=== PATIENT | male | born 1975 | race Caucasian/White ===

== ENCOUNTER → 2016-11-25 | Outpatient (CLI) | payer BC ==
[~2016-11-25] MED LIST: PERCOCET 325 MG1 TA3 PO; ROBAXIN 75750 MG/TAB PO; ULTRAM 50MG TAB50 MG PO
== END ==
LOC: COL.RAD 07:01
DX: M47.897 Other spondylosis, lumbosacral region (principal); M48.06 Spinal stenosis, lumbar region; M25.78 Osteophyte, vertebrae; M96.1 Postlaminectomy syndrome, not elsewhere classified

== ENCOUNTER → 2021-02-03 | Outpatient (CLI) | payer BC | LOC: MHCPAIN 14:46 | DX: M47.812 Spondylosis without myelopathy or radiculopathy, cervical region (principal); M54.12 Radiculopathy, cervical region | CPT/HCPCS: G0463 ==

== ENCOUNTER → 2021-02-12 | Outpatient (CLI) | payer BC | LOC: MHCPAIN 14:04 | DX: M47.812 Spondylosis without myelopathy or radiculopathy, cervical region (principal); M54.12 Radiculopathy, cervical region | CPT/HCPCS: J1100; Q9967 ==

== ENCOUNTER → 2021-02-23 | Outpatient (CLI) | payer BC | LOC: MHCPAIN 15:32 | DX: M47.812 Spondylosis without myelopathy or radiculopathy, cervical region (principal); M54.2 Cervicalgia; M54.12 Radiculopathy, cervical region | CPT/HCPCS: G0463 ==

== ENCOUNTER → 2021-03-12 | Outpatient (CLI) | payer BC | LOC: MHCPAIN 14:05 | DX: M47.812 Spondylosis without myelopathy or radiculopathy, cervical region (principal); M54.12 Radiculopathy, cervical region | CPT/HCPCS: J1100; Q9967 ==

== ENCOUNTER → 2021-03-31 | Outpatient (CLI) | payer BC | LOC: MHCPAIN 08:11 | DX: M47.812 Spondylosis without myelopathy or radiculopathy, cervical region (principal); M54.2 Cervicalgia | CPT/HCPCS: G0463 ==

== ENCOUNTER → 2021-06-30 | Outpatient (CLI) | payer BC | LOC: MHCPAIN 07:51 | DX: M54.12 Radiculopathy, cervical region (principal); M79.601 Pain in right arm; M47.812 Spondylosis without myelopathy or radiculopathy, cervical region | CPT/HCPCS: G0463 ==

== ENCOUNTER → 2022-08-24 | Outpatient (CLI) | payer BC | LOC: COL.RAD 10:05 | DX: M75.112 Incomplete rotator cuff tear or rupture of left shoulder, not specified as traumatic (principal); M19.012 Primary osteoarthritis, left shoulder ==